=== PATIENT | female | born 1970 | race Caucasian/White ===

== ENCOUNTER 2016-10-11 11:16 | Emergency (ER) | payer OTHER ==
[2016-10-11] MEDS ORDERED: NAPROSYN500 MG PO (11:24)
[2016-10-11] MEDS ORDERED: HYDROCODONE BIT1 T11 PO (12:32)
== END 2016-10-11 13:35 | disposition home or self-care (01) ==
LOC: ED 11:16
DX: S22.41XA Multiple fractures of ribs, right side, initial encounter for closed fracture (principal); S80.01XA Contusion of right knee, initial encounter; F17.200 Nicotine dependence, unspecified, uncomplicated; Z88.0 Allergy status to penicillin; Z88.1 Allergy status to other antibiotic agents; W10.9XXA Fall (on) (from) unspecified stairs and steps, initial encounter; Y93.89 Activity, other specified; Y92.89 Other specified places as the place of occurrence of the external cause; Y99.9 Unspecified external cause status

== ENCOUNTER 2017-07-18 12:31 | Emergency (ER) | payer OTHER ==
[~2017-07-18] VITALS: Ht 172.7 cm; Wt 59.0 kg
[~2017-07-18 12:31] MED LIST: HYDROCODONE BIT1 T11 PO; NAPROSYN500 MG PO
[2017-07-18] MEDS ORDERED: CLINDAMYCIN150 MG PO (12:51)
[2017-07-18] MEDS ORDERED: CHLORZOXAZONE500 M2 PO (12:51)
[2017-07-18] MEDS ORDERED: Bactroban Oint22 GM T (12:51)
[2017-07-18] MEDS ORDERED: NAPROSYN500 MG PO (12:51)
== END 2017-07-18 15:46 | disposition home or self-care (01) ==
LOC: ED 12:31
DX: S00.81XA Abrasion of other part of head, initial encounter (principal); R07.89 Other chest pain; M54.5 Low back pain; F17.200 Nicotine dependence, unspecified, uncomplicated; Z88.1 Allergy status to other antibiotic agents; Z88.0 Allergy status to penicillin; V89.2XXA Person injured in unspecified motor-vehicle accident, traffic, initial encounter; Y93.89 Activity, other specified; Y92.413 State road as the place of occurrence of the external cause; Y99.8 Other external cause status

== ENCOUNTER 2017-11-21 19:55 | Emergency (ER) | payer OTHER ==
[~2017-11-21] VITALS: Ht 172.7 cm; Wt 59.0 kg
[~2017-11-21 19:55] MED LIST changes: +Bactroban Oint22 GM T; +CHLORZOXAZONE500 M2 PO; +CLINDAMYCIN150 MG PO
[2017-11-21] MEDS ORDERED: IBU800 M1 PO (20:10)
[2017-11-21] MEDS ORDERED: CLOBETASOL PROP15 GM T (20:11)
[2017-11-21] MEDS ORDERED: KETOCONAZOLE 1120 ML T (20:11)
[2017-11-21] MEDS ORDERED: Zofran4 MG SL (20:58)
== END 2017-11-21 21:20 | disposition home or self-care (01) ==
LOC: ED 19:55
DX: R11.2 Nausea with vomiting, unspecified (principal); R19.7 Diarrhea, unspecified; R10.9 Unspecified abdominal pain; F17.200 Nicotine dependence, unspecified, uncomplicated; Z88.0 Allergy status to penicillin; Z88.1 Allergy status to other antibiotic agents; Z88.6 Allergy status to analgesic agent; Z79.899 Other long term (current) drug therapy

== ENCOUNTER 2018-01-24 17:46 | Emergency (ER) | payer MEDICAID ==
[~2018-01-24] VITALS: Ht 172.7 cm; Wt 59.0 kg
[~2018-01-24 17:46] MED LIST changes: +CLOBETASOL PROP15 GM T; +IBU800 M1 PO; +KETOCONAZOLE 1120 ML T; +Zofran4 MG SL
[2018-01-24] MEDS ORDERED: CLINDAMYCIN HC300 MG PO (18:18)
== END 2018-01-24 18:28 | disposition home or self-care (01) ==
LOC: ED 17:46
DX: K08.89 Other specified disorders of teeth and supporting structures (principal); R19.7 Diarrhea, unspecified; Z88.0 Allergy status to penicillin; Z88.1 Allergy status to other antibiotic agents; Z88.6 Allergy status to analgesic agent

== ENCOUNTER 2018-02-20 18:59 | Emergency (ER) | payer OTHER ==
[~2018-02-20] VITALS: Ht 172.7 cm; Wt 619.2 kg
[~2018-02-20 18:59] MED LIST changes: +CLINDAMYCIN HC300 MG PO
[2018-02-20] MEDS ORDERED: CEPHALEXIN500 M1 PO (19:39)
== END 2018-02-20 19:41 | disposition home or self-care (01) ==
LOC: ED 18:59
DX: J01.90 Acute sinusitis, unspecified (principal); Z88.0 Allergy status to penicillin; Z88.1 Allergy status to other antibiotic agents; Z88.6 Allergy status to analgesic agent

== ENCOUNTER 2018-05-04 | Emergency (ER) | payer OTHER ==
[~2018-05-04] MED LIST changes: +CEPHALEXIN500 M1 PO
[2018-05-04 16:26] LABS: BASO # 0.1 10*3/uL (0.0-0.1); BASO % 0.5 % (0.0-1.0); EOS % 0.1 % (1.0-4.0); HEMATOCRIT 40.9 % (37.0-47.0); HEMOGLOBIN 13.9 g/dl (12.0-16.0); LYMPH % 19.5 % (27.0-41.0); MEAN CELL VOLUME 92.3 fl (81.0-99.0); MEAN CORPUSCULAR HGB 31.4 pg (27.0-31.0); MEAN PLATELET VOLUME 8.5 fl (9.6-12.3); MONO # 0.7 10*3/uL (0.1-1.0); MONO % 6.8 % (3.0-9.0); NEUT # 7.5 10*3/uL (2.3-7.9); NEUT % 72.8 % (47.0-73.0); PLATELET COUNT AUTOMATED 340 10*3/uL (130-400); RED BLOOD COUNT 4.43 10*6/uL (4.10-5.10); RED CELL DISTRI WIDTH 13.2 % (0-14.5); WHITE BLOOD COUNT 10.3 10*3/uL (4.8-10.8)
[2018-05-04 16:55] LABS: BILIRUBIN NEGATIVE (NEGATIVE); BLOOD NEGATIVE (NEGATIVE); CLARITY CLEAR (CLEAR); COLOR YELLOW (YELLOW); GLUCOSE NEGATIVE (NEGATIVE); KETONE NEGATIVE (NEGATIVE); LEUKO ESTERASE NEGATIVE (NEGATIVE); NITRITE NEGATIVE (NEGATIVE); PH 7.5 (5.0-9.0); UROBILINOGEN 0.2 E.U./dl (0.2-1.0)
[2018-05-04 17:03] LABS: URINE AMPHETAMINES > 1000 (1000ng/ml); URINE BARBITURATES < 200 (200ng/ml); URINE BENZODIAZEPINES < 200 (200ng/ml); URINE CANNABINOIDS (THC) < 50 (50ng/ml); URINE COCAINE < 300 (300ng/ml); URINE METHADONE < 300 (300ng/ml); URINE OPIATES < 300 (300ng/ml)
[2018-05-04 17:04] LABS: URINE PHENCYCLIDINE < 25 (25ng/ml)
[2018-05-04 17:04] LABS: ALBUMIN 4.1 gm/dl (3.1-4.5); ALKALINE PHOSPHATASE 68 U/L (45-117); BUN 4 mg/dl (7-24); CHLORIDE 106 mmol/L (98-107); CREATININE 0.75 mg/dL (0.55-1.02); LIPASE 80 U/L (73-393); POTASSIUM 3.8 mmol/L (3.5-5.1); SGOT/AST 20 IU/L (3-35); SGPT/ALT 25 U/L (12-78); SODIUM 139 mmol/L (136-145); TOTAL PROTEIN 8.3 gm/dL (6.4-8.2)
[2018-05-04 17:16] LABS: BACTERIA TRACE; RBC 0-2 rbc/hpf (0-2); WBC 0-2 wbc/hpf (0-5)
[2018-05-04 17:18] LABS: ETHYL ALCOHOL < 3.0 mg/dl (<3)
== END 2018-05-04 18:14 | disposition home or self-care (01) ==
PROVIDERS: Nurse Practitioner Family
DX: R25.8 Other abnormal involuntary movements (principal); R52 Pain, unspecified; R11.0 Nausea; Z88.0 Allergy status to penicillin; Z88.1 Allergy status to other antibiotic agents; Z88.8 Allergy status to other drugs, medicaments and biological substances; Z79.2 Long term (current) use of antibiotics